=== PATIENT | female | born 1965 | race Caucasian/White ===

== ENCOUNTER 2016-07-19 11:11 | Emergency (ER) | payer OTHER ==
[~2016-07-19] VITALS: Ht 165.1 cm; Wt 68.0 kg
[~2016-07-19 11:11] MED LIST: BENA25TA8 PO; MELA10TA PO; NAPR220T95 PO
[2016-07-19 11:17] VITALS: BP 123/84; PULSE 91; RESP 15; TEMP 98.3; O2SAT 99
[2016-07-26] MEDS ORDERED: MELA5TAB15 PO (07:03)
[2016-07-26] MEDS ORDERED: NAPR220T95 PO (07:03)
[2016-07-26] MEDS ORDERED: HYDR-3288 PO (07:56)
[2016-07-26] MEDS ORDERED: PERC5TAB12 PO (09:19)
== END 2016-07-19 18:55 | disposition left against medical advice (07) ==
LOC: NED 11:11
DX: S42.302A Unspecified fracture of shaft of humerus, left arm, initial encounter for closed fracture (principal); X58.XXXA Exposure to other specified factors, initial encounter
CPT/HCPCS: 99281

== ENCOUNTER → 2016-07-26 | Day surgery (SDC) | payer OTHER ==
[~2016-07-26] VITALS: Ht 165.1 cm; Wt 72.8 kg
[~2016-07-26] MED LIST changes: +*MEPERIDINE 25 MG INJ VIAL PERIprocedural Use ONLY ONE; +*morphine SULFATE 8 MG/ML PERIprocedure ONLY ONE; +BUPIVACAINE/EPINEPHRINE 0.25% PF 30 ML VIAL ONE; +CHLORHEXIDINE GLUCONATE 4% SOLN 120 ML BTL TOP SCH; +DEXAMETHASONE SOD PHOS 4 MG/ML VIAL ONE; +DO NOT ADM ANY ANTICOAGULANT DRUGS XX PRN; +FAMOTIDINE 20 MG/2 ML VIAL ONE; +GENTAMICIN SULFATE 80 MG/2 ML VIAL ONE; +HYDR-3288 PO; +INSULIN HUMAN REGULAR 1,000 UNITS/10 ML VIAL SQ PRN; +KETOROLAC TROMETHAMINE 60 MG/2 ML (IM) VIAL IM ONE; +LACTATED RINGER'S 1000 ML IV SCH; +MELA5TAB15 PO; +METOPROLOL TARTRATE 25 MG TAB PO PRN; +MIDAZOLAM HCL 2 MG/2 ML VIAL ONE; +MORPHINE SULFATE 4 MG/ML INJ IV PUSH PRN; +MORPHINE SULFATE 4 MG/ML INJ ONE; +ONDANSETRON HCL 4 MG/2 ML VIAL IV PUSH ONE; +ONDANSETRON HCL 4 MG/2 ML VIAL ONE; +PERC5TAB12 PO; +PHENYLEPH/NS 1000 MCG/10 ML SYR IV ONE; +PROMETHAZINE INJ 25 MG/ML VIAL ONE; +PROPOFOL 200 MG/20 ML AMP IV ONE; +SODIUM CHLOR 0.9% 250 ML INJ 250 ML ONE; +SODIUM CHLORID 0.9% 500 ML IV SCH; +TRAZ100T4 PO; +VANCOMYCIN 1000 MG/NS 250 ML (for <70 kg) IV SCH; +VANCOMYCIN HCL 1000 MG VIAL ONE; +VIST50CA PO; +ceFAZolin 2 GM PREMIX 50 ML IV SCH; +ePHEDrine/NS 50 MG/5 ML SYR IV ONE; +oxyCODONE/ACETAMINOPHEN 5 MG/325 MG TAB PO PRN
[2016-07-26 07:04] VITALS: BP 109/81; PULSE 83; RESP 18; TEMP 98.3; O2SAT 96
--- NOTE | 2016-07-26 09:18 | PD.OP ---
cc: Fredi Gresham MD Operative Report Date of Surgery: Jul 26, 2016 Preoperative Diagnosis: Comminuted intra-articular left distal radius fracture Postoperative Diagnosis: Procedure: Open reduction internal fixation left distal radius Anesthesia: Gen. Surgeon: Fredi Gresham Electrical Design Engineer(s): LIBBY Clemons PA-C The surgical procedure was assisted by my physician nurse's assistant. My P.A. presence was necessary throughout this case for the manipulation and positioning of the surgical extremity. My P.A. was assisting me throughout the duration of this procedure. The skill set of a physician nurse's assistant was medically necessary to complete this procedure. During the surgical case the mathematics technician was working at the back table and the physician nurse's assistant was directly assisting me. Operation and Findings: Patient was seen and evaluated preoperatively and found to have a comminuted intra-articular displaced distal radius fracture. Informed consent was obtained after detailed discussion of risk and benefits including bleeding, infection, injury to arteries, nerves, and blood vessels, weakness and numbness of hand, and tendon rupture. Informed consent was obtained. Patient received IV antibiotics prior to incision. Timeout procedure was performed. Operative extremity was prepped with alcohol followed by Hibiclens and draped usual sterile fashion. A standard volar approach to the distal radius was utilized. A 3 inch incision was made over the FCR tendon. Tendon sheath was opened. Pronator quadratus was elevated up. The fracture site was now visualized. The fracture did have intra-articular extension. Traction was applied. The articular surface was reduced. The fracture had multiple intra-articular fragments. Fracture fragments were manipulated to achieve excellent reduction. K wires were used to hold provisional fixation. Fluoroscopy confirmed appropriate alignment of fracture. A Synthes 2 column variable angle distal radius plate was selected. Plate was provisionally fixed to bone with K wires. 2.7 and 2.4 cortical screws were used to compress plate to bone. Fluoroscopy confirmed appropriate alignment of fracture with well-placed hardware. Multiple 2.4 locking screws were now placed distally. Screws were predrilled and measured for appropriate length. 2 additional screws were placed into the shaft. K wires were removed. Final fluoroscopy revealed excellent of fracture with well-placed hardware. The wound was thoroughly irrigated with sterile saline. Subcutaneous tissue was closed with 3-0 Vicryl and skin was closed with 3-0 nylon. Sterile dressings were applied with Xeroform, 4 x 4, soft roll, and a well padded volar splint. Patient was awakened and transferred to recovery room in stable condition Fredi Gresham MD Jul 26, 2016 09:18
[2016-07-26 12:17] VITALS: BP 141/86; PULSE 83; RESP 20; TEMP 97.5; O2SAT 97
--- NOTE | 2016-07-26 13:42 | RADRPT ---
EXAM DATE/TIME: 07/26/2016 09:04 [facility] COMPARISON: No previous studies available for comparison. INDICATIONS: ORIF Left wrist. MEDICAL HISTORY: None. SURGICAL HISTORY: None. ENCOUNTER: Initial ACUITY: 1 day PAIN SCORE: Non-responsive. LOCATION: Left distal Radius FINDINGS: Hardware is noted within the left distal radius status post ORIF. Radius fracture fragments appear t o be well-aligned. Ulnar styloid avulsion fracture is also noted. CONCLUSION: 1. Status post ORIF of left distal radial fracture with hardware in good position and fracture fragm ents well-aligned. 2. Ulnar styloid process avulsion fracture is noted. Jarod Gonzalez MD on July 26, 2016 at 13:14 Board Certified Radiologist. This report was verified electronically.
--- NOTE | 2016-07-26 22:25 | EKG ---
Date Performed: 07/26/2016 Time Performed: 07:00:33 PTAGE: 51 years EKG: Sinus rhythm Compared to previous tracing, sinus tachycardia and nonspecific ST-T wave changes have resolved. NOR MAL ECG PREVIOUS TRACING : 08/17/2004 16.36 DOCTOR: Sheeba Perez Interpretating Date/Time 07/26/2016 22:23:52
== END | disposition home or self-care (01) ==
LOC: HSDC 06:15
PROVIDERS: ATTEND Orthopaedic Surgery Orthopaedic Trauma
DX: S52.572A Other intraarticular fracture of lower end of left radius, initial encounter for closed fracture (principal); S52.612A Displaced fracture of left ulna styloid process, initial encounter for closed fracture; Y09 Assault by unspecified means; Z01.810 Encounter for preprocedural cardiovascular examination
CPT/HCPCS: 01830; 25609; 73100; 76000; 93005; C1713; J1100; J1580; J1885; J2175; J2250; J2270; J2370; J2405; J2550; J3010; J3370; J7050; J7120

== ENCOUNTER 2016-09-23 12:57 | Emergency (ER) | payer SELFPAY ==
[~2016-09-23] VITALS: Ht 165.1 cm; Wt 69.0 kg
[~2016-09-23 12:57] MED LIST changes: -*MEPERIDINE 25 MG INJ VIAL PERIprocedural Use ONLY ONE; -*morphine SULFATE 8 MG/ML PERIprocedure ONLY ONE; -BENA25TA8 PO; -BUPIVACAINE/EPINEPHRINE 0.25% PF 30 ML VIAL ONE; -CHLORHEXIDINE GLUCONATE 4% SOLN 120 ML BTL TOP SCH; -DEXAMETHASONE SOD PHOS 4 MG/ML VIAL ONE; -DO NOT ADM ANY ANTICOAGULANT DRUGS XX PRN; -FAMOTIDINE 20 MG/2 ML VIAL ONE; -GENTAMICIN SULFATE 80 MG/2 ML VIAL ONE; -INSULIN HUMAN REGULAR 1,000 UNITS/10 ML VIAL SQ PRN; -KETOROLAC TROMETHAMINE 60 MG/2 ML (IM) VIAL IM ONE; -LACTATED RINGER'S 1000 ML IV SCH; -MELA10TA PO; -METOPROLOL TARTRATE 25 MG TAB PO PRN; -MIDAZOLAM HCL 2 MG/2 ML VIAL ONE; -MORPHINE SULFATE 4 MG/ML INJ IV PUSH PRN; -MORPHINE SULFATE 4 MG/ML INJ ONE; -NAPR220T95 PO; -ONDANSETRON HCL 4 MG/2 ML VIAL IV PUSH ONE; -ONDANSETRON HCL 4 MG/2 ML VIAL ONE; -PHENYLEPH/NS 1000 MCG/10 ML SYR IV ONE; -PROMETHAZINE INJ 25 MG/ML VIAL ONE; -PROPOFOL 200 MG/20 ML AMP IV ONE; -SODIUM CHLOR 0.9% 250 ML INJ 250 ML ONE; -SODIUM CHLORID 0.9% 500 ML IV SCH; -TRAZ100T4 PO; -VANCOMYCIN 1000 MG/NS 250 ML (for <70 kg) IV SCH; -VANCOMYCIN HCL 1000 MG VIAL ONE; -VIST50CA PO; -ceFAZolin 2 GM PREMIX 50 ML IV SCH; -ePHEDrine/NS 50 MG/5 ML SYR IV ONE; -oxyCODONE/ACETAMINOPHEN 5 MG/325 MG TAB PO PRN
[2016-09-23 12:59] VITALS: BP 158/98; PULSE 108; RESP 16; TEMP 98.1; O2SAT 98
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
[2016-09-23] MEDS ORDERED: LORazepam 1 MG TAB PO ONE (13:30)
[2016-09-23 13:35] VITALS: BP 136/81; PULSE 84; RESP 18; O2SAT 94
[2016-09-23 13:50] LABS: AUTOMATED NEUTROPHIL # 5.7 TH/MM3 (1.8-7.7); BASOPHIL # 0.1 TH/MM3 (0-0.2); BASOPHIL % 0.7 % (0.0-2.0); EOSINOPHIL # 0.1 TH/MM3 (0-0.4); EOSINOPHIL % 0.9 % (0.0-4.0); HEMATOCRIT 41.4 % (35.0-46.0); HEMO FLAGS DIFF FINAL; LYMPH % 24.1 % (9.0-44.0); LYMPHOCYTE # 2.1 TH/MM3 (1.0-4.8); MEAN CELL VOLUME 89.3 FL (80.0-100.0); MEAN CORPUSCULAR HGB CONC 35.8 % (32.0-36.0); MONO % 8.1 % (0.0-8.0); NEUT % 66.2 % (16.0-70.0); PLATELET COUNT 278 TH/MM3 (150-450); RED BLOOD COUNT 4.63 MIL/MM3 (4.00-5.30); WHITE BLOOD COUNT 8.6 TH/MM3 (4.0-11.0)
[2016-09-23 14:02] LABS: AMPHETAMINE, URINE NEG (NEG); BARBITURATES, URINE NEG (NEG); COCAINE, URINE NEG (NEG)
[2016-09-23 14:19] LABS: ANION GAP 10 MEQ/L (5-15); BICARBONATE 24.9 MEQ/L (21.0-32.0); BLOOD UREA NITROGEN 11 MG/DL (7-18); CHLORIDE 108 MEQ/L (98-107); GLOMERULAR FILTRATION RATE 70 ML/MIN (>89); SODIUM (NA) 143 MEQ/L (136-145)
--- NOTE | 2016-09-23 14:23 | RADRPT ---
EXAM DATE/TIME: 09/23/2016 14:13 [facility] COMPARISON: No previous studies available for comparison. INDICATIONS : Altered mental status. RADIATION DOSE: 47.76 CTDIvol (mGy) MEDICAL HISTORY : Hypertension. SURGICAL HISTORY : None. ENCOUNTER: Initial ACUITY: 1 day PAIN SCALE: 0/10 LOCATION: cranial TECHNIQUE: Multiple contiguous axial images were obtained of the head. Using automated exposure control and adj ustment of the mA and/or kV according to patient size, radiation dose was kept as low as reasonably a chievable to obtain optimal diagnostic quality images. FINDINGS: CEREBRUM: The ventricles are normal for age. No evidence of midline shift, mass lesion, hemorrhage or acute in farction. No extra-axial fluid collections are seen. POSTERIOR FOSSA: The cerebellum and brainstem are intact. The 4th ventricle is midline. The cerebellopontine angle i s unremarkable. EXTRACRANIAL: The visualized portion of the orbits is intact. SKULL: The calvaria is intact. No evidence of skull fracture. CONCLUSION: No acute disease. Eliazar Webster MD FACR on September 23, 2016 at 14:21 Board Certified Radiologist. This report was verified electronically.
[2016-09-23 17:20] VITALS: BP 98/53; PULSE 97; RESP 16; O2SAT 98
[2016-09-23] MEDS ORDERED: VIST50CA PO (21:48)
== END 2016-09-23 20:04 | disposition left against medical advice (07) ==
LOC: NEPE 12:57
DX: F32.9 Major depressive disorder, single episode, unspecified (principal); F43.20 Adjustment disorder, unspecified; I10 Essential (primary) hypertension; F10.21 Alcohol dependence, in remission; F17.210 Nicotine dependence, cigarettes, uncomplicated
CPT/HCPCS: 70450; 80048; 80307; 84443; 85025

== ENCOUNTER 2016-09-23 20:49 | Emergency (ER) | payer SELFPAY ==
[2016-09-23 20:52] VITALS: BP 118/85; PULSE 111; RESP 16; TEMP 98.3
--- NOTE | 2016-09-23 21:47 | PD ---
HPI Chief Complaint: Anxiety Time Seen by Provider: 21:42 Travel History International Travel<30 days: No Contact w/Intl Traveler<30days: No Traveled to known affect area: No History of Present Illness HPI Patient returns back to the emergency Department requesting prescription for anything that might help her anxiety that has been ongoing for approximately one year. Patient was seen in the emergency department earlier evaluated but left AMA prior to being seen by psychiatric department. Patient denies any homicidal or suicidal ideations. Patient is just requesting a 30 day supply of any type of medication to help with her anxiety. Patient states she's been taking melatonin for over the past year but no longer seems to be helping. Patient states she did see a primary care doctor was placed on unknown medication however states the medications made her sick. Denies any other medical concerns. Denies any chest pain, shortness breath, abdominal pain, fevers, pain, neck pain, headaches, or loss or change in bowel or bladder. PFSH Past Medical History Arthritis: No Autoimmune Disease: No Blood Disorders: No Depression: Yes Cancer: No Cardiovascular Problems: No Chest Pain: No Diminished Hearing: No Endocrine: No Genitourinary: No Hypertension: Yes Musculoskeletal: No Neurologic: No Psychiatric: Yes (HX OF ALCOHOLISM: IN RECOVERY SINCE 2005) Reproductive: No Respiratory: Yes (BRONCHITIS) Ulcer: Yes (ESOPHAGITIS, GASTRIC ULCERS) Tetanus Vaccination: < 5 Years ?: Not Menopausal: No : 2 Para: 2 Past Surgical History Genitourinary Surgery: No Other Surgery: Yes (LEFT WRIST GANGLION CYST) Social History Alcohol Use: No (QUIT: 2005) Tobacco Use: Yes (1/2 PPD) Substance Use: No Allergies-Medications (Allergen,Severity, Reaction): Coded Allergies: Advil (Verified Allergy, Severe, vomiting, 09/23/16) Lortab (Verified Allergy, Severe, vomit, 09/23/16) Latex (Verified Adverse Reaction, Severe, Rash, 09/23/16) *MDRO Multi-Drug Resistant Organism (Verified Adverse Reaction, Unknown, ) 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) Reported Meds & Prescriptions Reported Meds & Active Scripts Active Vistaril (Hydroxyzine Pamoate) 50 Mg Cap 50 Mg PO Q8HR PRN Review of Systems Except as stated in HPI: all other systems reviewed are Neg Physical Exam Narrative GENERAL: Well-developed, well nourished, in no acute distress, and non-ill appearing. SKIN: Warm and dry. HEAD: Atraumatic. Normocephalic. EYES: Pupils equal and round. EOMI. No scleral icterus. No injection or drainage. ENT: No nasal bleeding or discharge. Mucous membranes pink and moist. NECK: Trachea midline. Supple. No nuclear rigidity. CARDIOVASCULAR: Regular rate and rhythm. No murmur appreciated. RESPIRATORY: No accessory muscle use. No respiratory distress. Clear to auscultation. Breath sounds equal bilaterally. MUSCULOSKELETAL: No obvious deformities. No clubbing. No cyanosis. No edema. Full range of motion. NEUROLOGICAL: Awake and alert. No obvious cranial nerve deficits. Motor grossly within normal limits. Normal speech. PSYCHIATRIC: Appropriate mood and affect; insight and judgment normal. Data Data Last Documented VS Vital Signs Date Time Temp Pulse Resp B/P Pulse Ox O2 Delivery O2 Flow Rate FiO2 09/23/16 20:52 98.3 111 16 118/85 Room Air MDM Medical Decision Making Medical Screen Exam Complete: Yes Emergency Medical Condition: No Medical Record Reviewed: Yes Differential Diagnosis Nonspecific mood disorder, anxiety, depression, malingering, medical noncompliance, other Narrative Course Patient in no obvious distress upon re-evaluation. Patient was if she was offered a psychiatric counseling, however the patient is declining at this time. Patient was asked if they wanted to speak to my attending, which the patient did not wish to do at this time. Any questions/concerns in reference to patient diagnosis/condition discussed and clarified prior to patient's discharge. Reinforced sheer importance of close follow up with patient's primary physician or primary care clinic. Instructed patient to return to ED immediately, if symptoms return/worsen. Pt showed understanding of above instructions. Further instructions and recommendations were detailed in discharge paperwork. Pt ambulated without difficulty out of ED at discharge. Diagnosis Primary Impression: Anxiety Patient Instructions: Anxiety (ED), General Instructions Additional Instructions: Follow-up with your primary care physician and/or Eduar Mendez this week for reevaluation. Take all medication as prescribed. Return to the emergency department if symptoms get worse. Med/Other Pt SpecificInfo: Prescription(s) given Scripts Hydroxyzine Pamoate (Vistaril)50 Mg Cap50 Mg PO Q8HR PRN (ANXIETY) #9 CAP Ref 0 Prov:Chayo Smith MD 09/23/16 Disposition: 01 DISCHARGE HOME Condition: Stable Hernan Love Sep 23, 2016 21:47
[2016-09-23] MEDS ORDERED: VIST50CA PO (21:48)
== END 2016-09-23 22:02 | disposition home or self-care (01) ==
LOC: NEPB 20:49
DX: F41.9 Anxiety disorder, unspecified (principal)
CPT/HCPCS: 99283

== ENCOUNTER 2016-09-27 00:38 | Emergency (ER) | payer SELFPAY ==
[~2016-09-27] VITALS: Ht 165.1 cm; Wt 68.0 kg
[~2016-09-27 00:38] MED LIST changes: -HYDR-3288 PO; -MELA5TAB15 PO; -PERC5TAB12 PO; +VIST50CA PO
[2016-09-27 00:40] VITALS: BP 138/101; PULSE 129; RESP 20; TEMP 98.4; O2SAT 98
[2016-09-27 01:30] VITALS: BP 126/90; PULSE 92; RESP 18; O2SAT 95
--- NOTE | 2016-09-27 01:43 | PD ---
HPI Chief Complaint: Anxiety Time Seen by Provider: 01:20 Travel History International Travel<30 days: No Contact w/Intl Traveler<30days: No Traveled to known affect area: No History of Present Illness HPI Patient returns to the emergency department after having a "panic attack". Patient states that she has not followed up as previously instructed. She took a Vistaril which did not help her. Patient is requesting Ativan. Patient denies any homicidal or suicidal ideations. Patient denies any other medical concerns. Denies any chest pain, shortness of breath, headache, neck pain, nausea, vomiting, or abdominal pain. History Past Medical Histgory Menopausal: No Hx Cancer: No Social History Alcohol Use: No (QUIT: 2005) Tobacco Use: Yes (2 PPD) Allergies-Medications (Allergen,Severity, Reaction): Coded Allergies: Advil (Verified Allergy, Severe, vomiting, 09/27/16) Lortab (Verified Allergy, Severe, vomit, 09/27/16) Latex (Verified Adverse Reaction, Severe, Rash, 09/27/16) *MDRO Multi-Drug Resistant Organism (Verified Adverse Reaction, Unknown, ) 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) Reported Meds & Prescriptions Reported Meds & Active Scripts Active No Active Prescriptions or Reported Medications Review of Systems Except as stated in HPI: all other systems reviewed are Neg Physical Exam Narrative GENERAL: Well-developed, well nourished, in no acute distress, and non-ill appearing. SKIN: Warm and dry. HEAD: Atraumatic. Normocephalic. EYES: Pupils equal and round. EOMI. No scleral icterus. No injection or drainage. ENT: No nasal bleeding or discharge. Mucous membranes pink and moist. NECK: Trachea midline. Supple. No nuclear rigidity. RESPIRATORY: No accessory muscle use. No respiratory distress. MUSCULOSKELETAL: No obvious deformities. No clubbing. No cyanosis. No edema. Full range of motion. NEUROLOGICAL: Awake and alert. No obvious cranial nerve deficits. Motor grossly within normal limits. Normal speech. PSYCHIATRIC: Appropriate mood and affect; insight and judgment normal. Data Data Last Documented VS Vital Signs Date Time Temp Pulse Resp B/P Pulse Ox O2 Delivery O2 Flow Rate FiO2 09/27/16 01:30 92 18 126/90 95 Room Air 09/27/16 00:40 98.4 MDM Medical Screen Exam Complete: Yes Emergency Medical Condition: No Narrative Course History and physical exam findings are not consistent with an emergent medical condition. Patient was offered evaluation by psych, but refuses. She was given the option of receiving additional care, but has declined. Therefore the appropriate counseling recommendations were discussed with the patient and she was instructed to follow-up with her primary care physician as soon as possible for reevaluation. Patient was also informed of community resources from which she can obtain additional care. She is agreeable and verbalizes an understanding of the proposed plan. The patient states she will immediately return to the emergency department if her current complaints do not improve, new symptoms arise, or emergent condition develops. Patient ambulated out of the emergency department without difficulty. Primary Impression: Encounter for medical screening examination Scripts No Active Prescriptions or Reported Meds Disposition: [facility]-ED USE ONLY Condition: Hernan Greco Sep 27, 2016 01:42
== END 2016-09-27 01:33 | disposition left against medical advice (07) ==
LOC: NEPB 00:38
DX: F41.0 Panic disorder [episodic paroxysmal anxiety] (principal); F17.210 Nicotine dependence, cigarettes, uncomplicated
CPT/HCPCS: 99281

== ENCOUNTER 2016-09-28 22:48 | Emergency (ER) | payer SELFPAY ==
[~2016-09-28] VITALS: Ht 165.1 cm; Wt 75.0 kg
[2016-09-29 00:20] VITALS: BP 130/87; PULSE 93; RESP 18; TEMP 98.5; O2SAT 96
--- NOTE | 2016-09-29 01:10 | PD ---
HPI Chief Complaint: Psychiatric Symptoms Time Seen by Provider: 00:27 Travel History International Travel<30 days: No Contact w/Intl Traveler<30days: No Traveled to known affect area: No History of Present Illness HPI Patient is a 51-year-old female who comes in under [employer] [place] [employer] act due to thoughts of wanting to hurt herself. She says she has had a tough year and she can't take it anymore. She does not want to discuss with me her plan. When asked if she is hearing voices, she says she does not want to talk about it. She has no medical complaints at this time. PFSH Past Medical History Arthritis: No Autoimmune Disease: No Blood Disorders: No Depression: Yes Cancer: No Cardiovascular Problems: No Chest Pain: No Diminished Hearing: No Endocrine: No Genitourinary: No Hypertension: Yes Musculoskeletal: No Neurologic: No Psychiatric: Yes (HX OF ALCOHOLISM: IN RECOVERY SINCE 2005) Reproductive: No Respiratory: Yes (BRONCHITIS) Ulcer: Yes (ESOPHAGITIS, GASTRIC ULCERS) Tetanus Vaccination: Unknown ?: Not Menopausal: No : 2 Para: 2 Past Surgical History Genitourinary Surgery: No Other Surgery: Yes (LEFT WRIST GANGLION CYST) Social History Alcohol Use: No (PT STATES SHE QUIT IN 2005) Tobacco Use: Yes (/2 PPD) Substance Use: No Allergies-Medications (Allergen,Severity, Reaction): Coded Allergies: Advil (Verified Allergy, Severe, vomiting, 09/27/16) Lortab (Verified Allergy, Severe, vomit, 09/27/16) Latex (Verified Adverse Reaction, Severe, Rash, 09/27/16) *MDRO Multi-Drug Resistant Organism (Verified Adverse Reaction, Unknown, ) 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) Reported Meds & Prescriptions Reported Meds & Active Scripts Active No Active Prescriptions or Reported Medications Review of Systems Except as stated in HPI: all other systems reviewed are Neg General / Constitutional: No: Fever, Chills HENT: No: Headaches Cardiovascular: No: Chest Pain or Discomfort Respiratory: No: Shortness of Breath Gastrointestinal: No: Nausea, Vomiting Musculoskeletal: No: Pain Skin: No Change in Pigmentation Neurologic: No: Weakness Psychiatric: Positive: Suicidal Ideations Physical Exam Narrative GENERAL: Awake and alert, in no acute distress. Tearful. SKIN: Warm and dry. HEAD: Atraumatic. Normocephalic. EYES: Pupils equal and round. No scleral icterus. ENT: Mucous membranes pink and moist. NECK: Trachea midline. No JVD. CARDIOVASCULAR: Regular rate and rhythm. No murmur appreciated. RESPIRATORY: No accessory muscle use. Clear to auscultation. Breath sounds equal bilaterally. GASTROINTESTINAL: Abdomen soft, non-tender, nondistended. MUSCULOSKELETAL: No obvious deformities. No clubbing. No cyanosis. No edema. NEUROLOGICAL: Awake and alert. No obvious cranial nerve deficits. Motor grossly within normal limits. Normal speech. PSYCHIATRIC: Appropriate mood and affect; insight and judgment normal. Data Data Last Documented VS Vital Signs Date Time Temp Pulse Resp B/P Pulse Ox O2 Delivery O2 Flow Rate FiO2 09/29/16 00:26 93 18 09/29/16 00:20 98.5 130/87 96 Orders Complete Blood Count With Diff (09/29/16 01:02) Comprehensive Metabolic Panel (09/29/16 01:02) Psych Screen (09/29/16 01:02) Drug Screen, Random Urine (09/29/16 01:02) Alcohol (Ethanol) (09/29/16 01:02) Salicylates (Aspirin) (09/29/16 01:02) Tylenol (Acetaminophen) (09/29/16 01:02) MDM Medical Decision Making Medical Screen Exam Complete: Yes Emergency Medical Condition: Yes Differential Diagnosis Depression versus psychosis versus suicidal ideation Narrative Course Patient is a 51-year-old female who comes in under [employer] [place] [employer] act because she is depressed and wants to hurt herself. She has no medical complaints at this time. Exam shows no abnormalities. Patient will be medically cleared for psychiatric evaluation. 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
[2016-09-29 01:39] LABS: AUTOMATED NEUTROPHIL # 7.4 TH/MM3 (1.8-7.7); BASOPHIL # 0.1 TH/MM3 (0-0.2); BASOPHIL % 0.8 % (0.0-2.0); EOSINOPHIL # 0.2 TH/MM3 (0-0.4); EOSINOPHIL % 1.5 % (0.0-4.0); HEMATOCRIT 40.3 % (35.0-46.0); HEMO FLAGS DIFF FINAL; LYMPH % 23.8 % (9.0-44.0); LYMPHOCYTE # 2.7 TH/MM3 (1.0-4.8); MEAN CELL VOLUME 89.5 FL (80.0-100.0); MEAN CORPUSCULAR HGB CONC 34.7 % (32.0-36.0); MONO % 7.7 % (0.0-8.0); NEUT % 66.2 % (16.0-70.0); PLATELET COUNT 271 TH/MM3 (150-450); RED BLOOD COUNT 4.51 MIL/MM3 (4.00-5.30); RED CELL DISTRIBUTION WIDTH 12.8 % (11.6-17.2); WHITE BLOOD COUNT 11.2 TH/MM3 (4.0-11.0)
[2016-09-29 01:59] LABS: ALT (GPT) 36 U/L (10-53); ANION GAP 11 MEQ/L (5-15); AST (GOT) 19 U/L (15-37); BICARBONATE 20.5 MEQ/L (21.0-32.0); BLOOD UREA NITROGEN 17 MG/DL (7-18); CHLORIDE 111 MEQ/L (98-107); GLOMERULAR FILTRATION RATE 71 ML/MIN (>89); POTASSIUM 3.7 MEQ/L (3.5-5.1); SODIUM (NA) 142 MEQ/L (136-145)
[2016-09-29 02:01] LABS: ACETAMINOPHEN LESS THAN 2.0 MCG/ML (10.0-30.0); ALKALINE PHOSPHATASE 79 U/L (45-117); TOTAL BILIRUBIN ADULT 0.4 MG/DL (0.2-1.0)
[2016-09-29] MEDS ORDERED: diphenhydrAMINE HCL 50 MG CAP PO ONE ×3 (02:30→21:15)
[2016-09-29 02:42] LABS: AMPHETAMINE, URINE NEG (NEG); BARBITURATES, URINE NEG (NEG); COCAINE, URINE NEG (NEG)
[2016-09-29 08:00] VITALS: BP 128/70; PULSE 71; RESP 16; TEMP 98; O2SAT 98
[2016-09-29] MEDS ORDERED: ACETAMINOPHEN 325 MG TAB PO ONE (11:00)
[2016-09-29 13:14] VITALS: BP 126/87; PULSE 82; RESP 18; TEMP 97.3; O2SAT 94
[2016-09-29 14:00] VITALS: BP 113/65; PULSE 65; RESP 18
[2016-09-29 18:00] VITALS: BP 95/58; PULSE 67; RESP 18
[2016-09-29 22:45] VITALS: BP 135/90; PULSE 58; RESP 18; O2SAT 98
[2016-09-30 02:44] VITALS: BP 126/75; PULSE 56; RESP 18; TEMP 97.4; O2SAT 97
[2016-09-30 06:28] VITALS: BP 126/81; PULSE 68; RESP 19; O2SAT 98
[2016-09-30] MEDS ORDERED: diphenhydrAMINE HCL 50 MG CAP PO ONE (12:30)
[2016-09-30 12:43] VITALS: BP 111/71; PULSE 64; RESP 18; O2SAT 97
--- NOTE | 2016-09-30 14:15 | PD ---
History of Present Illness Chief Complaint: Psychiatric Symptoms Time Seen by Provider: 14:00 Travel History International Travel<30 Days: No Contact w/Intl Traveler<30days: No Known affected area: No Legal Status Legal Status: Newman Act Newman Act Signed By: Kenia Hudson History of Present Illness: This is a 51-year-old female who was Newman acted for making suicidal threats. Patient reports she got into a verbal altercation with her boyfriend and has since made up with him over the telephone. She is currently denying any suicidal ideation, plan or intention. The nurse this physician to has spoken to the patient's boyfriend and he reports that she becomes emotionally distraught on occasion, unpredictably. She does have the added stressor of having a 20 and 17-year-old son who live with their father and don't have much to do with their mother. However, she does report a good relationship with her boyfriend and would like to return home to him. She is verbally lisbeth for safety. She denies symptoms of a mood disorder. At this time she does not meet criteria for a Enwman act or inpatient psychiatric hospitalization. [facility] Past Medical History Medical History: Denies Significant Hx Arthritis: No Autoimmune Disease: No Blood Disorders: No Depression: Yes Cancer: No Cardiovascular Problems: No Chest Pain: No Diminished Hearing: No Endocrine: No Genitourinary: No Hypertension: Yes Musculoskeletal: No Neurologic: No Psychiatric: Yes (HX OF ALCOHOLISM: IN RECOVERY SINCE 2005) Reproductive: No Respiratory: Yes (BRONCHITIS) Ulcer: Yes (ESOPHAGITIS, GASTRIC ULCERS) Tetanus Vaccination: Unknown ?: Not Menopausal: No : 2 Para: 2 Past Surgical History Genitourinary Surgery: No Other Surgery: Yes (LEFT WRIST GANGLION CYST) Psychiatric History Psychiatric History Hx Psychiatric Treatment: DENIES History of Inpatient Treatment: No Guns or firearms in home: No Social History Hx Alcohol Use: No (PT STATES SHE QUIT IN 2005) Hx Tobacco Use: Yes (1/2 PPD) Hx Substance Use: Yes (ALCOHOL) Substance Use Type: Alcohol Hx of Substance Use Treatment: Yes Allergies-Medications (Allergen,Severity, Reaction): Coded Allergies: Advil (Verified Allergy, Severe, vomiting, 09/27/16) Lortab (Verified Allergy, Severe, vomit, 09/27/16) Latex (Verified Adverse Reaction, Severe, Rash, 09/27/16) *MDRO Multi-Drug Resistant Organism (Verified Adverse Reaction, Unknown, ) 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) Reported Meds & Prescriptions Reported Meds & Active Scripts Active No Active Prescriptions or Reported Medications Review of Systems ROS Limitations: Clinical Condition Except as stated in HPI: all other systems reviewed are Neg Exam Exam Limitations: Clinical Condition Alert: Yes [place]: Person, Place, Date, Situation Mood: Calm Affect: Restricted Speech: Clear, Logical Eye Contact: Normal Memory Intact: Immediate, Recent, Remote Delusions: No Insight/Judgement adequate MDM Medical Decision Making Medical Record Reviewed: Yes Assessment/Plan Patient is calm and cooperative and denies any suicidal ideation, homicidal ideation or psychotic symptoms. She does not meet criteria for Newman act or inpatient psychiatric hospitalization. She has spoken with her boyfriend who is willing to take her home. This physician therefore lifted her Newman act and the patient is being discharged home. Outpatient psychiatric follow up is recommended. Orders Diet Regular Basic (09/29/16 Dinner) Diphenhydramine (Benadryl) (09/29/16 17:00) Diphenhydramine (Benadryl) (09/29/16 21:15) Diet Regular Basic (09/30/16 Breakfast) Diet Regular Basic (09/30/16 Lunch) Diphenhydramine (Benadryl) (09/30/16 12:30) Diet Regular Basic (09/30/16 Dinner) Results Vital Signs Date Time Temp Pulse Resp B/P Pulse Ox O2 Delivery O2 Flow Rate FiO2 09/30/16 12:43 64 18 111/71 97 Room Air 09/30/16 06:28 68 19 126/81 98 09/30/16 02:44 97.4 56 18 126/75 97 Room Air 09/29/16 22:45 58 18 135/90 98 Room Air 09/29/16 18:00 67 18 95/58 Room Air Diagnosis Primary Impression: Depressed Additional Impression: Adjustment disorder with mixed disturbance of emotions and conduct Referrals: ACT (Out patient) call for appointment Departure Forms: Tests/Procedures Patient Instructions: General Instructions, Mood Disorders (ED) Prescriptions No Active Prescriptions or Reported Meds Disposition: 01 DISCHARGE HOME Condition: Stable Problem Qualifiers Primary Impression: Depressed Qualified Code: 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
[2016-09-30] MEDS ORDERED: TRAZ100T4 PO (14:26)
== END 2016-09-30 15:00 | disposition home or self-care (01) ==
LOC: NEPA 22:48 → NEPJ 09-30 15:00
DX: F33.9 Major depressive disorder, recurrent, unspecified (principal); I10 Essential (primary) hypertension; F17.210 Nicotine dependence, cigarettes, uncomplicated
CPT/HCPCS: 80053; 80307; 85025; 99285; Q0163

== ENCOUNTER 2016-10-08 22:08 | Emergency (ER) | payer OTHER ==
[~2016-10-08] VITALS: Ht 165.1 cm; Wt 70.0 kg
[~2016-10-08 22:08] MED LIST changes: +TRAZ100T4 PO; -VIST50CA PO
[2016-10-08 22:10] VITALS: BP 144/95; PULSE 104; RESP 16; TEMP 98.2; O2SAT 97
== END 2016-10-09 00:15 | disposition left against medical advice (07) ==
LOC: NED 22:08
DX: Z53.21 Procedure and treatment not carried out due to patient leaving prior to being seen by health care provider (principal)
CPT/HCPCS: 99281